=== PATIENT | male | born 1985 | race African-American/Black ===

== ENCOUNTER 2019-06-24 20:40 | Emergency (ER) | payer SELFPAY ==
[~2019-06-24] VITALS: Ht 175.3 cm; Wt 123.0 kg
[2019-06-25 07:30] VITALS: BP 136/88
== END 2019-06-25 07:33 | disposition home or self-care (01) ==
LOC: ER 21:25
DX: B34.9 Viral infection, unspecified (principal)
CPT/HCPCS: 71045; 93005; 99284

== ENCOUNTER 2019-11-15 20:09 | Emergency (ER) | payer MEDICAID ==
[~2019-11-15] VITALS: Ht 175.3 cm; Wt 127.0 kg
[2019-11-15] MEDS ORDERED: VISCOUS LIDOCAINE 2% 15 ML UDC PO STA (20:35)
[2019-11-15] MEDS ORDERED: MAGNESIUM/ALUMINUM HYDROXIDE/SIMETHICONE 30ML UDC PO STA (20:35)
[2019-11-15] MEDS ORDERED: DICYCLOMINE 10 MG/5 ML ORAL SYR PO STA (20:35)
[2019-11-15 21:04] LABS: CHLORIDE 105 mEq/L (98-107)
[2019-11-15 21:10] LABS: BASOPHILS % 0.9 % (0.0-2.0); EOSINOPHILS % 6.6 % (0.0-5.0); HEMATOCRIT. 37.2 % (42.0-52.0); HEMOGLOBIN. 12.9 g/dL (14.0-18.0); LYMPHOCYTES % 18.3 % (20.0-50.0); MEAN CORPUSCULAR HEMOGLOBIN 30.5 pg (28.0-32.0); MEAN CORPUSCULAR VOLUME 87.9 fL (80.0-94.0); MEAN PLATELET VOLUME 8.6 fl (7.4-10.4); MONOCYTES % 6.2 % (2.0-8.0); PLATELET 343 x1000/uL (130-400); RED BLOOD CELL COUNT 4.23 mill/uL (4.7-6.1); RED CELL DISTRIBUTION WIDTH 14.2 % (11.6-14.6)
[2019-11-15] MEDS ORDERED: POTASSIUM CHLORIDE 20MEQ TABLET SR PO ONE (23:00)
[2019-11-15 23:05] VITALS: BP 152/80
== END 2019-11-15 23:05 | disposition home or self-care (01) ==
LOC: ER 20:19
DX: R10.10 Upper abdominal pain, unspecified (principal); E87.6 Hypokalemia
CPT/HCPCS: 36415; 74176; 80053; 85025; 93005; 99285

== ENCOUNTER 2020-09-27 07:44 | Emergency (ER) | payer SELFPAY ==
[~2020-09-27] VITALS: Ht 182.9 cm; Wt 127.0 kg
[2020-09-27 08:43] VITALS: BP 150/100
== END 2020-09-27 08:44 | disposition home or self-care (01) ==
LOC: ER 07:44
DX: J02.9 Acute pharyngitis, unspecified (principal)
CPT/HCPCS: 99283

== ENCOUNTER 2024-07-28 19:43 | Emergency (ER) | payer MEDICAID ==
[~2024-07-28] VITALS: Ht 175.3 cm; Wt 109.0 kg
[~2024-07-28 19:43] MED LIST: CEFP200T13 MT
[2024-07-28 19:45] VITALS: O2SAT 98
[2024-07-28] MEDS: TETANUS, DIPHTHERIA, PERTUSSIS VAC/PF 0.5ML (>10YR OLD) IM ONE (21:11)
[2024-07-28] MEDS: ACETAMINOPHEN 325MG TABLET PO ONE (21:11)
[2024-07-28 23:04] VITALS: BP 145/85; PULSE 70; RESP 18; TEMP 36.4; O2SAT 100
== END 2024-07-28 23:08 | disposition home or self-care (01) ==
LOC: ER 19:43
DX: S00.531A Contusion of lip, initial encounter (principal); I10 Essential (primary) hypertension; V89.2XXA Person injured in unspecified motor-vehicle accident, traffic, initial encounter; Y93.89 Activity, other specified; Y92.89 Other specified places as the place of occurrence of the external cause; Y99.8 Other external cause status
CPT/HCPCS: 70486; 90471; 90715; 99285